=== PATIENT | female | born 1960 | race Caucasian/White ===

== ENCOUNTER 2018-03-20 06:10 | Emergency (ER) | payer MEDICAID ==
[~2018-03-20] VITALS: Ht 154.9 cm; Wt 88.5 kg
[2018-03-20 06:14] VITALS: BP 128/69
--- NOTE | 2018-03-20 06:14 | NUR ---
PT BIB SELF FOR LOWER BACK PAIN X2 WEEKS. PT REPORTS SHARP 9/10 PAIN THAT RADIATES TO ABD AND R HIP. PT DENIES N/V/D OR FEVER. PT DENIES BURNING URINATION OR FREQUENCY. ABD IS SOFT, NON-TENDER, HAS BOWEL SOUNDS ACTIVE X4 QUADRANTS. PT STATES LAST BM WAS 0400 THIS MORNING. ER MD TO SEE PT. BED IN LOWEST POSITION, HOB ELEVATED, SIDE RAILS UP X1. WILL CONTINUE TO MONITOR.
--- NOTE | 2018-03-20 06:14 | NUR ---
PT TAKEN TO BED 7
--- NOTE | 2018-03-20 07:30 | NUR ---
Patient being evaluated by physician at bedside.
[2018-03-20] MEDS ORDERED: KETOROLAC 60 MG/2 ML VIAL IM ONE ×2 (07:35→08:12)
--- NOTE | 2018-03-20 07:45 | NUR ---
TORADOL 60MG IM GIVEN TO PT ON RIGHT DELTOID
[2018-03-20 09:42] VITALS: BP 125/67
== END 2018-03-20 09:42 | disposition home or self-care (01) ==
LOC: MED 06:10
DX: S39.011A Strain of muscle, fascia and tendon of abdomen, initial encounter (principal); X58.XXXA Exposure to other specified factors, initial encounter; Y93.89 Activity, other specified; Y92.89 Other specified places as the place of occurrence of the external cause; Y99.8 Other external cause status
CPT/HCPCS: 81002; 81025; 96372; 99283; J1885

== ENCOUNTER 2019-01-07 17:10 | Emergency (ER) | payer MEDICAID ==
[~2019-01-07] VITALS: Ht 149.9 cm; Wt 90.7 kg
[2019-01-07 17:28] VITALS: BP 140/80
[2019-01-07 20:00] VITALS: BP 137/79
== END 2019-01-07 20:00 | disposition home or self-care (01) ==
LOC: MED 17:10
DX: J18.9 Pneumonia, unspecified organism (principal)
CPT/HCPCS: 71045; 87804; 99284

== ENCOUNTER 2019-02-16 09:07 | Emergency (ER) | payer MEDICAID ==
[~2019-02-16] VITALS: Ht 157.5 cm; Wt 86.6 kg
[2019-02-16 09:13] VITALS: BP 108/77
--- NOTE | 2019-02-16 09:13 | NUR ---
58 Y/O F WITH C/C OF COUGH, H/A, NAUSEA X2 DAYS. PT NKA. NO MEDICAL HX. NO RX. DENIES DIARRHEA/VOMITING. PT NOT UP TO DATE WITH FLU SHOT.
--- NOTE | 2019-02-16 09:20 | NUR ---
DR BANSAL AT BEDSIDE
--- NOTE | 2019-02-16 09:21 | NUR ---
DR BANSAL AT BEDSIDE
[2019-02-16] MEDS ORDERED: ONDANSETRON 4 MG/2 ML VIAL IVP ONE (09:25)
[2019-02-16] MEDS ORDERED: ONDANSETRON 4 MG ODT PO ONE (09:25)
[2019-02-16] MEDS ORDERED: KETOROLAC 30 MG/ML VIAL IVP ONE (09:25)
[2019-02-16] MEDS ORDERED: IBUPROFEN 600 MG TAB PO ONE (09:25)
[2019-02-16] MEDS ORDERED: NACL 0.9% 1,000 ML IV ONE (09:25)
--- NOTE | 2019-02-16 09:30 | NUR ---
FLU SWAB COLLECTED
--- NOTE | 2019-02-16 09:33 | NUR ---
PT TAKEN TO XRAY VIA WHEELCHAIR
[2019-02-16] MEDS ORDERED: LEVOFLOXACIN 500 MG TAB PO ONE (10:00)
[2019-02-16 10:59] VITALS: BP 108/77
== END 2019-02-16 10:59 | disposition home or self-care (01) ==
LOC: MED 09:07
DX: J18.8 Other pneumonia, unspecified organism (principal)
CPT/HCPCS: 71046; 87804; 96374; 96375; 99284; J1885; J2405; J7030; Q0162

== ENCOUNTER 2019-08-24 21:07 | Inpatient (IN) | payer MEDICAID, SELFPAY ==
[~2019-08-24] VITALS: Ht 142.2 cm; Wt 88.5 kg
[2019-08-24 21:51] VITALS: BP 104/69
[2019-08-24 21:56] LABS: BASOPHILS # (AUTO) 0.1 K/uL (0.00-0.22); BASOPHILS % (AUTO) 0.7 % (0.0-2.0); EOSINOPHILS % (AUTO) 0.1 % (0.0-4.0); HEMATOCRIT 46.3 % (36-48); HEMOGLOBIN 15.2 g/dL (12.0-16.0); LYMPHOCYTES # (AUTO) 1.3 K/uL (2.5-16.5); LYMPHOCYTES % (AUTO) 9.9 % (20.5-51.1); MEAN CORPUSCULAR HEMOGLOBIN 31 pg (27-31); MEAN CORPUSCULAR HGB CONC 33 g/dL (33-37); MEAN CORPUSCULAR VOLUME 93.2 fL (80-94); MONOCYTES # (AUTO) 0.7 K/uL (0.8-1.0); NEUTROPHILS % (AUTO) 84.3 % (42.2-75.2); PLATELET COUNT (AUTO) 316 K/uL (140-450); RED BLOOD CELL COUNT(AUTO) 4.97 MIL/uL (4.20-5.40); RED CELL DISTRIBUTION WIDTH 13.9 % (11.6-13.7); WHITE BLOOD COUNT (AUTO) 13.1 K/uL (4.8-10.8)
--- NOTE | 2019-08-24 22:05 | NUR ---
PT AMBULATED TO LOBBY TO A/W MEDICAL EVALUATION, VSS
[2019-08-24 22:30] LABS: ALBUMIN 3.2 g/dL (3.4-5.0); ANION GAP 16.2 (8-16); CREATININE 0.9 mg/dL (0.6-1.3); POTASSIUM 4.2 mmol/L (3.5-5.1); TOTAL BILIRUBIN 0.5 mg/dL (0.0-1.0)
--- NOTE | 2019-08-24 23:00 | NUR ---
PT AMBULATED TO ER BED 4
--- NOTE | 2019-08-24 23:10 | NUR ---
XRAY AT BEDSIDE
--- NOTE | 2019-08-24 23:12 | NUR ---
59 Y/O FEMALE C/O COUGH/SUBJECTIVE FEVER/SORE THROAT X 3 DAYS; PAIN 8/10 IN; TEMP IS 98.8 ORAL; BP 94/60; HR 91; RR 20; 97% RA; DENIES N/V/D; SKIN IS PINK/WARM/DRY; AAOX4 WITH EVEN AND STEADY GAIT; HR EVEN AND REGULAR; PT DENIES ANY SOB AT THIS TIME; VSS; PATIENT POSITIONED FOR COMFORT; HOB ELEVATED; BEDRAILS UP X2; BED DOWN AND LOCKED AND PT PLACED IN GOWN AND CONNECTED TO BEDSIDE MONITOR. PMH: PT DENIES NKA
--- NOTE | 2019-08-24 23:15 | NUR ---
PT MOVED FROM BED 4 TO BED 1 WITH STEADY GAIT
[2019-08-24] MEDS ORDERED: DEXAMETHASONE 4 MG/ML VIAL IVP ONE (23:25)
[2019-08-24] MEDS ORDERED: AZITHROMYCIN 500 MG in DEXTROSE 5% 250 ML IV ONE (23:25)
[2019-08-24] MEDS ORDERED: hePARIN / DEXT 5% PREMIX 250 ML IV ONE (23:25)
[2019-08-24] MEDS ORDERED: AZITHROMYCIN 500 MG INJ VIAL IV ONE (23:55)
[2019-08-25 00:28] LABS: PROTHROMBIN TIME 10.1 secs (10.8-13.4)
--- NOTE | 2019-08-25 01:00 | NUR ---
PT RESTING IN POSITION OF COMFORT, BED LOW AND LOCKED, 2 SIDERAILS UP, VSS, WILL CONTINUE TO MONITOR
[2019-08-25] MEDS ORDERED: LORazepam 2 MG/ML VIAL IM/IVP PRN (01:55)
[2019-08-25] MEDS ORDERED: HYDROcodone/APAP 5/325 MG 1 TAB TAB PO PRN (01:55)
[2019-08-25] MEDS ORDERED: MORPHINE SULFATE 2 MG/ML SYR IVP PRN (01:55)
[2019-08-25] MEDS ORDERED: ACETAMINOPHEN 325 MG TAB PO PRN (01:55)
[2019-08-25] MEDS ORDERED: hePARIN / DEXT 5% PREMIX 250 ML IV ONE (01:55)
[2019-08-25] MEDS ORDERED: DOCUSATE SODIUM 100 MG GELCAP PO PRN (01:55)
[2019-08-25] MEDS ORDERED: ONDANSETRON 4 MG/2 ML VIAL IM/IVP PRN (01:55)
[2019-08-25] MEDS ORDERED: ZOLPIDEM 5 MG TAB PO PRN (01:55)
--- NOTE | 2019-08-25 01:56 | NUR ---
STATED TO GIVE PT 1000UNITS/HR OF HEPARIN, NOTED AND CARRIED OUT .
--- NOTE | 2019-08-25 02:28 | NUR ---
PT SLEEPING IN POSITION OF COMFORT, BED LOW AND LOCKED, 2 SIDERAILS UP, VSS, WILL CONTINUE TO MONITOR
[2019-08-25] MEDS ORDERED: ALBUTEROL HFA MDI 90 MCG/ACTUATION 8 GM INH PRN (03:15)
[2019-08-25] MEDS ORDERED: DEXTROSE 50% 50 ML SYR IVP PRN (03:25)
--- NOTE | 2019-08-25 03:31 | NUR ---
PT SLEEPING IN POSITION OF COMFORT, BED LOW AND LOCKED, 2 SIDERAILS UP, VSS, WILL CONTINUE TO MONITOR
[2019-08-25 03:55] LABS: CHOL/HDL RATIO 3.6 (1-4.5); FREE T4 (FREE THYROXINE) 1.22 ng/dL (0.76-1.46); PHOSPHORUS 3.2 mg/dL (2.5-4.9); THYROID STIMULATING HORMONE 1.79 uIU/mL (0.34-3.74)
--- NOTE | 2019-08-25 03:56 | NUR ---
COVID NARE SWAB DONE AND WALKED TO LAB
[2019-08-25] MEDS: NACL 0.9% 1,000 ML IV SCH ×3 (04:30→21:52)
--- NOTE | 2019-08-25 04:30 | NUR ---
URINE SAMPLE OBTAINED AND WALKED TO LAB
--- NOTE | 2019-08-25 04:41 | NUR ---
PT RESTING IN POSITION OF COMFORT, BED LOW AND LOCKED, 2 SIDERAILS UP, VSS, WILL CONTINUE TO MONITOR
[2019-08-25] MEDS ORDERED: cefTRIAXone 1,000 MG VIAL ONE (04:45)
--- NOTE | 2019-08-25 05:55 | NUR ---
PT RESTING IN POSITION OF COMFORT, BED LOW AND LOCKED, 2 SIDERAILS UP, VSS, WILL CONTINUE TO MONITOR
[2019-08-25 06:33] LABS: APPEARANCE,URINE CLEAR (CLEAR); BILIRUBIN,URINE NEGATIVE (NEGATIVE); BLOOD, URINE NEGATIVE (NEGATIVE); COLOR,URINE YELLOW (YELLOW); LEUKOCYTE ESTERASE ,URINE NEGATIVE (NEGATIVE); NITRITE, URINE NEGATIVE (NEGATIVE); UGLUCOSE 1+ (NEGATIVE)
[2019-08-25 06:41] LABS: RBC,URINE 0-5 /HPF (0-5); WBC,URINE 0-5 /HPF (0-5)
[2019-08-25] MEDS: BLOOD GLUCOSE MONITORING 1 DEV DEV FS SCH ×4 (06:58→21:00)
[2019-08-25] MEDS: INSULIN LISPRO SLIDING SCALE 100 UNITS/ML VIAL SUBQ PRN ×3 (07:01→23:38)
--- NOTE | 2019-08-25 07:08 | NUR ---
PT RESTING IN POSITION OF COMFORT, BED LOW AND LOCKED, 2 SIDERAILS UP, VSS, WILL CONTINUE TO MONITOR
[2019-08-25 07:24] LABS: BASOPHILS % (AUTO) 0.2 % (0.0-2.0); HEMOGLOBIN 14.2 g/dL (12.0-16.0); LYMPHOCYTES # (AUTO) 0.4 K/uL (2.5-16.5); LYMPHOCYTES % (AUTO) 3.4 % (20.5-51.1); MEAN CORPUSCULAR HEMOGLOBIN 31 pg (27-31); MEAN CORPUSCULAR HGB CONC 33 g/dL (33-37); MONOCYTES # (AUTO) 0.2 K/uL (0.8-1.0); MONOCYTES % (AUTO) 1.8 % (1.7-9.3); NEUTROPHILS # (AUTO) 10.7 K/uL (1.8-7.7); NEUTROPHILS % (AUTO) 94.6 % (42.2-75.2); PLATELET COUNT (AUTO) 324 K/uL (140-450); RED BLOOD CELL COUNT(AUTO) 4.63 MIL/uL (4.20-5.40); WHITE BLOOD COUNT (AUTO) 11.3 K/uL (4.8-10.8)
--- NOTE | 2019-08-25 07:26 | NUR ---
Pt report given to tonny watts . Transfer of care at this time.
[2019-08-25 07:39] LABS: ALBUMIN 2.7 g/dL (3.4-5.0); ANION GAP 12.4 (8-16); CARBON DIOXIDE 26.7 mmol/L (21-32); CREATININE 0.8 mg/dL (0.6-1.3); MAGNESIUM 2.2 mg/dL (1.8-2.4); PHOSPHORUS 3.4 mg/dL (2.5-4.9); POTASSIUM 4.1 mmol/L (3.5-5.1); TOTAL BILIRUBIN 0.4 mg/dL (0.0-1.0)
--- NOTE | 2019-08-25 08:49 | NUR ---
PATIENT HAS BEEN SCREENED AND CATEGORIZED MODERATE NUTRITION RISK. PATIENT WILL BE SEEN WITHIN 3-5 DAYS OF ADMISSION. 08/27/19 08/29/[address]
--- NOTE | 2019-08-25 09:40 | NUR ---
PT EATING AT BEDSIDE
[2019-08-25 09:53] LABS: BARBITURATE, URINE NEGATIVE ng/ml (NEG <=200); BENZODIAZEPINE, URINE NEGATIVE ng/mL (NEG <=200); CANNABINOID, URINE NEGATIVE ng/mL (NEG <=50); COCAINE, URINE NEGATIVE ng/mL (NEG <=300); OPIATE, URINE NEGATIVE ng/mL (NEG <=2000); PHENCYCLIDINE SCREEN,URINE NEGATIVE ng/mL (NEG <=25)
[2019-08-25] MEDS: ASCORBIC ACID 500 MG TAB PO SCH (10:26)
[2019-08-25] MEDS: DEXAMETHASONE 4 MG/ML VIAL IVP SCH (10:26)
[2019-08-25] MEDS: VITAMIN D 400 IU TAB PO SCH (10:27)
[2019-08-25] MEDS: ZINC SULF 220 MG CAP PO SCH (10:28)
[2019-08-25] MEDS: AZITHROMYCIN 250 MG in DEXTROSE 5% 250 ML IV SCH (10:58)
--- NOTE | 2019-08-25 11:06 | NUR ---
PT RESTING IN BED COMFORTABLY. NO NOTED DISTRESS.
--- NOTE | 2019-08-25 12:22 | NUR ---
BLOOD SUGAR 338 *TAKEN AFTER MEAL
--- NOTE | 2019-08-25 12:27 | NUR ---
BS REPORTED TO RESIDENT.
--- NOTE | 2019-08-25 12:50 | NUR ---
8 UNITS OF REGULAR INSULIN GIVEN, SQ RT LOWER ABD FOR A BS OF 333. NADR AT THIS TIME
--- NOTE | 2019-08-25 18:46 | NUR ---
Albino calzada in [facility] - 08/25/19 at 1846 by [facility] BS 255, 6 UNITS INSULIN GIVEN SQ
--- NOTE | 2019-08-25 18:47 | NUR ---
BS 255, 6 UNITS INSULIN GIVEN SQ LEFT LOWER ABD
--- NOTE | 2019-08-25 19:14 | NUR ---
REPORT GIVEN TO ISIDRO WALLACE. ALL CARE TRANSFERRED AT THIS TIME.
--- NOTE | 2019-08-25 20:04 | NUR ---
PT GIVEN DINNER TRAY, RESTING COMFORTABLY IN BED. VSS, R/R EQUAL AND UNLABORED. BED IN LOW POSITION.
--- NOTE | 2019-08-25 20:48 | NUR ---
PT ACCIDENTALLY DISLODGED R HAND 20 GAUGE IV. 20 GAUGE REPLACED IN RAC.
--- NOTE | 2019-08-25 21:35 | NUR ---
Patient will be admitted to care of DR. TELLO. Admited to TELE. Will go to room 119 B. Belongings list completed. Report to ISIDRO WINSLOW.
[2019-08-25 22:00] VITALS: BP 114/70
--- NOTE | 2019-08-25 22:00 | NUR ---
Admitted from ER TO TELEMETRY UNIT , with chief complaint of COUGH, SORE THROAT, FEVER X 3 DAYS , 59 y/o ,Female, Cooperative, AWAKE, A/OX4, CITIZEN OF [place] SPEAKING, USED GEOCHEMIST LINK, #[id number].RESPIRATION EVEN AND UNLABORED. 02 SAT - 96% ON 2 L N/C. ABDOMEN SOFT, NON-TENDER WITH POSITIVE BOWEL SOUNDS. NO EDEMA NOTED ON BILATERAL LOWER EXTREMITIES. PATIENT IS ABLE TO AMBULATE INDEPENDENTLY. HEAD TO TOE ASSESSMENT DONE WITH ISIDRO TRAN. SKIN IS INTACT. PLAN OF CARE DISCUSSED WITH PATIENT. VERBALIZED UNDERSTANDING. DENIES PAIN 0/10. oriented to call light, bed,phone,television, bathroom, smoking policy,visiting hours, procedures, ID bracelet on. Belongings list checked.
[2019-08-26] VITALS: BP 117/73
--- NOTE | 2019-08-26 | NUR ---
SLEEPING COMFORTABLY IN BED.
[2019-08-26] MEDS ORDERED: guaiFENesin DM 200/20 MG-10 ML 10 ML UDC PO PRN (01:55)
[2019-08-26 04:00] VITALS: BP 122/69
--- NOTE | 2019-08-26 04:00 | NUR ---
STILL SINUS RHYTHM ON TELE MONITORING. NO COMPLAINT OF PAIN 0/10.
[2019-08-26] MEDS ORDERED: cefTRIAXone 1,000 MG VIAL ONE (04:28)
[2019-08-26 06:30] LABS: BASOPHILS % (AUTO) 0.3 % (0.0-2.0); HEMATOCRIT 39.8 % (36-48); HEMOGLOBIN 13.2 g/dL (12.0-16.0); LYMPHOCYTES # (AUTO) 1.2 K/uL (2.5-16.5); LYMPHOCYTES % (AUTO) 7.9 % (20.5-51.1); MEAN CORPUSCULAR HEMOGLOBIN 31 pg (27-31); MEAN CORPUSCULAR HGB CONC 33 g/dL (33-37); MEAN CORPUSCULAR VOLUME 92.4 fL (80-94); MONOCYTES # (AUTO) 1.1 K/uL (0.8-1.0); MONOCYTES % (AUTO) 7.5 % (1.7-9.3); NEUTROPHILS # (AUTO) 12.4 K/uL (1.8-7.7); NEUTROPHILS % (AUTO) 84.3 % (42.2-75.2); PLATELET COUNT (AUTO) 347 K/uL (140-450); RED BLOOD CELL COUNT(AUTO) 4.31 MIL/uL (4.20-5.40); RED CELL DISTRIBUTION WIDTH 13.8 % (11.6-13.7); WHITE BLOOD COUNT (AUTO) 14.7 K/uL (4.8-10.8)
[2019-08-26 07:08] LABS: ALBUMIN 2.6 g/dL (3.4-5.0); ANION GAP 13.6 (8-16); CARBON DIOXIDE 26.4 mmol/L (21-32); CREATININE 0.5 mg/dL (0.6-1.3); MAGNESIUM 2.1 mg/dL (1.8-2.4); PHOSPHORUS 2.9 mg/dL (2.5-4.9); TOTAL BILIRUBIN 0.2 mg/dL (0.0-1.0)
[2019-08-26] MEDS: BLOOD GLUCOSE MONITORING 1 DEV DEV FS SCH ×4 (07:15→21:00)
[2019-08-26] MEDS: INSULIN LISPRO SLIDING SCALE 100 UNITS/ML VIAL SUBQ PRN ×4 (07:18→22:03)
--- NOTE | 2019-08-26 07:30 | NUR ---
CONDITION REMAIN STABLE. ENDORSED TO AM SHIFT NURSE FOR CONTINUITY OF CARE.
--- NOTE | 2019-08-26 07:35 | NUR ---
RECEIVED PT FROM HOLLOCK MAKER NURSE, NAYLA, PT IS AWAKE AND ON ROOM AIR, IV LINES NOTED ON THE RAC G. 20 WITH NS INFUSING AT 100ML/HR AND ON THE LEFT HAND G. 20 ON SALINE LOCK, PT DENIES PAIN AND NO SIGN OF DISTRESS NOTED. WILL MONITOR PT. Addendum: 08/26/19 at 1127 by Harriet Faulkner RN CORRECTION ON THE ABOVE NOTE THATN PT IS ON O2 2L NC.
[2019-08-26] MEDS: NACL 0.9% 1,000 ML IV SCH ×2 (07:52→20:04)
[2019-08-26 08:00] VITALS: BP 102/69
[2019-08-26] MEDS: ENOXAPARIN 80 MG/0.8 ML SYR SUBQ SCH (10:40)
[2019-08-26] MEDS: AZITHROMYCIN 250 MG in DEXTROSE 5% 250 ML IV SCH (10:41)
[2019-08-26] MEDS: VITAMIN D 400 IU TAB PO SCH (10:41)
[2019-08-26] MEDS: ZINC SULF 220 MG CAP PO SCH (10:41)
[2019-08-26] MEDS: ASCORBIC ACID 500 MG TAB PO SCH (10:42)
[2019-08-26] MEDS: DEXAMETHASONE 4 MG/ML VIAL IVP SCH (10:42)
--- NOTE | 2019-08-26 10:42 | NUR ---
PT WAS GIVEN THE SCHEDULED AM MEDICATIONS NOW, TOLERATED, NO SIGN OF DISTRESS NOTED AND WILL MONITOR PT.
--- NOTE | 2019-08-26 11:14 | NUR ---
PT WAS GIVEN INSULIN 4 UNITS ON THE ABDOMEN FOR BLOOD GLUCOSE OF 203, WILL MONITOR PT.
[2019-08-26 12:00] VITALS: BP 104/67
--- NOTE | 2019-08-26 15:25 | NUR ---
DC PLANNIN YRS OLD FEMALE PATIENT WAS ADMITTED FROM HOME WITH A DX OF BILATERAL PNEUMONIA , R/O COVID. PT HAS NO MEDICAL HISTORY. CXR SHOWED BILATERAL HAZY PULMONARY DENSITIES, CONCERN FOR INFILTRATE . URINE AND BLOOD CULTURE AND COVID -19 TEST PENDING. STARTED ON IVF ,IV ABX AZITHROMYCIN AND ROCEPHIN , DECADRON VIT C AND ZINC TABLET. CONSULTED WITH ID AND PULMO DC PLAN TO GO HOME WHEN STABLE. CM TO FOLLOW. Addendum: 08/27/19 at 1334 by Sirisha Huntley CM FAXED ORDER FOR HOME O2 TO [facility]. WILL FOLLOW UP Addendum: 08/27/19 at 1709 by Sirisha Huntley CM SPOKE TO PATIENTS SARAH ARAMBULA [phone] REGARDING HOME OXYGEN. THE ANDRES FOR HOME 02 OUT OF POCKET IS $225.00. HOWEVER THE PATIENTS FAMILY CAN NOT AFFORD THIS AT THE TIME. DAWSON AT [facility] STATED THAT HE COULD REDUCE IT TO $150.00 IF THE PATIENTS CAN DRESSING ROOM ATTENDANT THE OXYGEN HIMSELF BUT THE [facility] OFFICE CLOSES AT 5:00 PM. THE AGREED TO PAY THE 150.00 TOMORROW. I EXPLAINED TO HIM THAT IT HAS TO BE EXACT WOODALL OR CREDIT CARD. NOTIFIED DR. BECKHAM. Addendum: 08/28/19 at 0914 by Sirisha Huntley CM FOLLOWED UP WITH THE PATIENTS GIRISH [phone] REGARDING THE HOME O2. HE WILL BE AT [facility] IN [place] AROUND 9:30 AM TO DRESSING ROOM ATTENDANT THE EQUIPMENT AND COULD BE HERE AT THE [facility] AROUND 11:00 -11:30 AM TO DRESSING ROOM ATTENDANT THE PATIENT. I FOLLOWED UP WITH DAWSON AT [facility] TO MAKE SURE EVERYTHING WAS IN PLACE. DAWSON STATED THAT EVERYTHING IS GOOD TO GO AND HE WAS IN CONTACTED WITH THE [facility] WELL. NOTIFIED ISIDRO YANES
--- NOTE | 2019-08-26 15:32 | NUR ---
08/26/19 RD INITIAL ASSESSMENT COMPLETED PLEASE REFER TO NUTRITION ASSESSMENT UNDER CARE ACTIVITY FOR ESTIMATED NUTRITIONAL NEEDS. 1. CONTINUE CCHO 60GM DIET TOLERATED 2. CONTINUE GLUCERNA BID 3. ENCOURAGED INCREASING PO INTAKE 4. RD TO FOLLOW-UP 3-5 DAYS, MODERATE RISK [place], RD
[2019-08-26 16:00] VITALS: BP 130/70
--- NOTE | 2019-08-26 16:09 | NUR ---
PT WAS GIVEN INSULIN 6 UNITS ON THE ABDOMEN FOR THE BLOOD GLUCOSE CHECK OF 266, V/S TAKEN AND IS STABLE, WILL MONITOR PT.
--- NOTE | 2019-08-26 19:07 | NUR ---
TRANSFER OF CARE TO PM NAYLA LANGE. PT IS RESTING IN BED AWAKE. VS STABLE. PT IS COMFORTABLE. BED IN LOWEST POSITION. RECOMMEND CONTINUE MONITORING BLOOD SUGAR.
--- NOTE | 2019-08-26 19:08 | NUR ---
RECD. RESTING IN BED, AWAKE, A/OX4. RESPIRATION EVEN AND UNLABORED. 02 AT 2 LITERS VIA N/C. SAT- 96%. IV OF NS AT 100 ML/HR INFUSING RIGHT AC G20. AMBULATORY TO THE BATHROOM, AFEBRILE. OCCASIONALLY COUGH, BUT DENIES PHLEGM. PLAN OF CARE FOR THE SHIFT DISCUSSED. VERBALIZED UNDERSTANDING. DENIES PAIN 0/10.
--- NOTE | 2019-08-26 19:20 | NUR ---
PROVIDER EDUCATION SPECIALIST CALLED, PATIENT IS COVID POSITIVE.
[2019-08-26 20:00] VITALS: BP 132/62
--- NOTE | 2019-08-26 20:00 | NUR ---
Patient's Plan of Care was discussed and reviewed with SHOE WORKER: NAYLA MARTÍNEZ
--- NOTE | 2019-08-26 20:00 | NUR ---
Patient's Plan of Care was discussed and reviewed with RADHA DUFFY
--- NOTE | 2019-08-26 20:30 | NUR ---
ENCOURAGED TO DRINK MORE FLUIDS AND TO DO OCCASIONAL DEEP BREATHING. NODS HEAD IN UNDERSTANDING.
--- NOTE | 2019-08-26 21:00 | NUR ---
SNACK FOR THE NIGHT GIVEN, ATE 100%.
--- NOTE | 2019-08-26 23:00 | NUR ---
IV SALINE LOCK AT THE LEFT HAND G20, ACCIDENTALLY PULLED OUT BY PATIENT WHILE AMBULATING TO THE BR. CLEANSED BLOOD ON PATIENT AND FLOOR. MADE COMFORTABLE IN BED.
[2019-08-27] VITALS: BP 141/70
--- NOTE | 2019-08-27 01:30 | NUR ---
SLEEPING COMFORTABLY IN BED.
[2019-08-27 04:00] VITALS: BP 142/82
--- NOTE | 2019-08-27 04:00 | NUR ---
VS STABLE. NO FEVER AND NO COMPLAINT OF PAIN 0/10.
[2019-08-27] MEDS: NACL 0.9% 1,000 ML IV SCH ×3 (05:05→21:04)
[2019-08-27] MEDS: BLOOD GLUCOSE MONITORING 1 DEV DEV FS SCH ×4 (06:58→21:00)
[2019-08-27] MEDS: INSULIN LISPRO SLIDING SCALE 100 UNITS/ML VIAL SUBQ PRN ×3 (07:04→18:17)
--- NOTE | 2019-08-27 07:20 | NUR ---
AWAKE IN BED, CONDITION REMAIN STABLE. NO FEVER, NO COMPLAINT OF PAIN DURING SHIFT. ENDORSED TO AM SHIFT NURSE FOR CONTINUITY OF CARE.
--- NOTE | 2019-08-27 07:21 | NUR ---
RECEIVED REPORT FORM ENROLLMENT SERVICES DEAN NURSE. PATIENT SITTING IN BED WATCHING TV. NO DISTRESS NOTED. DENIES ANY PAIN AT THIS TIME. AAOX3, CALM, COOPERATIVE, SKIN COLOR APPROPRIATE TO ETHNICITY, WARM TO TOUCH. SKIN INTACT. RESPIRATIONS EVEN, UNLABORED, ON O2 2L/MIN VIA NC. INTERMITTENT DRY COUGH NOTED. IV SITE INTACT, PATENT, AND INFUSING IVF PER MD ORDERS. REVIEWED PLAN OF CARE WITH PATIENT. PATIENT VERBALIZED UNDERSTANDING. SAFETY MEASURES IN PLACE, CALL LIGHT WITHIN REACH. WILL CONTINUE TO MONITOR.
[2019-08-27 08:00] VITALS: BP 121/71
[2019-08-27] MEDS: DEXAMETHASONE 4 MG/ML VIAL IVP SCH (10:05)
[2019-08-27] MEDS: VITAMIN D 400 IU TAB PO SCH (10:06)
[2019-08-27] MEDS: ASCORBIC ACID 500 MG TAB PO SCH (10:06)
[2019-08-27] MEDS: ZINC SULF 220 MG CAP PO SCH (10:06)
[2019-08-27] MEDS: ENOXAPARIN 80 MG/0.8 ML SYR SUBQ SCH (10:06)
[2019-08-27] MEDS: AZITHROMYCIN 250 MG in DEXTROSE 5% 250 ML IV SCH (10:09)
--- NOTE | 2019-08-27 10:09 | NUR ---
SCHEDULED MEDICATIONS DUE GIVEN. WILL CONTINUE TO MONITOR.
[2019-08-27] MEDS ORDERED: AZIT250T3 PO (10:50)
[2019-08-27] MEDS ORDERED: [UNRECOGNIZED DRUG - CODE] PO (10:50)
[2019-08-27] MEDS ORDERED: DEC4 PO (10:50)
[2019-08-27] MEDS ORDERED: ZINC220C28 PO (10:50)
[2019-08-27] MEDS ORDERED: ASPI-1822 PO (10:50)
[2019-08-27] MEDS ORDERED: METF850T PO (10:54)
--- NOTE | 2019-08-27 11:41 | NUR ---
PERFORMED OXYGEN QUALIFIER TEST ON PATIENT. ON ROOM AIR FOR 30 MIN, O2 SAT IS 88%. WHEN WALKING 10 FT IN ROOM ON ROOM AIR, O2 SAT 78-80%. WHEN WALKING 10 FT WITH O2 3L/MIN VIA NC, O2 SAT 86-88%. WHEN SITTING DOWN RESTING ON O2 3L/MIN VIA NC, O2 SAT 91-92%. WILL NOTIFY
[2019-08-27 12:00] VITALS: BP 124/75
--- NOTE | 2019-08-27 12:51 | NUR ---
SCHEDULED MEDICATIONS DUE GIVEN. WILL CONTINUE TO MONITOR.
--- NOTE | 2019-08-27 14:35 | NUR ---
PRE PRESS OPERATOR NOTE: Patient's Orientation Person Situation Place Time Information Provided By GIIRSH ARAMBULA Comments SW WAS UNABLE TO MEET PATIENT AT BEDSIDE DUE TO MEDICAL CONDITION. Supervisor Dyer, Realtionship and Phone Number GIRISH TYESHA SIGNIFICANT OTHER [phone] Identifying Problems No Social Work Triggers Is A Social Work Consult Needed No Mandate Report Filed No Explanation Of Identifying Problems PATIENT IS A 59-YEAR-OLD FEMALE ADMITTED FOR BILATERAL PNEUMONIA AND COVID R/O. PATIENT HAS NO PERTINENT PMHX. Admitted From Home Pre-Admission Level Of Functioning Status Independent/Ambulatory Prior Resources/Services Used In Last 12 Months No Prior Resources Used Prior DME No Prior DME Used Living Situation Lives W/Significant Other House Patient Had Caregiver No Home Support No Caregiver Issues Financial Issues No Known Financial Issue Factors/Needs No D/C Needs Identified Pt/Rep Participated In Discharge Plan Yes Patient/Family Agress With Discharge Plan Yes Discharge Plan Comments [facility] DISCHARGE PLAN IS FOR PATIENT TO RETURN HOME. DC Plan Status Initiated
[2019-08-27 16:00] VITALS: BP 125/81
--- NOTE | 2019-08-27 17:15 | NUR ---
PER CAROUSEL OPERATOR, PATIENT'S WILL PICKUP OXYGEN TOMORROW BECAUSE THEY CLOSED AT 1700 AND WANTS TO PICKUP FOR $75 DISCOUNT ON OXYGEN CO-PAY ANDRES. CAROUSEL OPERATOR ALSO GAVE PATIENT'S ADDRESS AND PHONE NUMBER OF OXYGEN PICKUP PLACE. TO PICKUP OXYGEN SOMETIME EARLY TOMORROW. WILL CONTINUE TO MONITOR.
--- NOTE | 2019-08-27 18:18 | NUR ---
SCHEDULED MEDICATIONS DUE GIVEN. WILL CONTINUE TO MONITOR.
--- NOTE | 2019-08-27 19:30 | NUR ---
GAVE REPORT TO OUTSOLE BEVELER NURSE FOR CONTINUITY OF CARE. PATIENT IN STABLE CONDITION.
[2019-08-27 20:00] VITALS: BP 132/88
--- NOTE | 2019-08-27 20:23 | NUR ---
RECEIVED REPORT FROM [facility] NURSE FOR CONTINUITY OF CARE. PT IS AA&OX2. RESPIRATIONS ARE EVEN AND UNLABORED, BREATHING TO 2LPM VIA NC. RAC 20G IV IS PATENT AND INTACT, AND INFUSING ORDERED. CCHO 60 GRAM DIET.REVIEWED POC. PT'S TO [facility] HOME O2 TOMORROW MORNING. PT IS COVID-19 POSITIVE; DROPLET PRECAUTIONS IN PLACE. SAFETY MEASURES IN PLACE; BED IN LOW POSITION, CALL LIGHT WITHIN REACH. WILL CONTINUE TO MONITOR. Addendum: 08/27/19 at 2027 by Kimmy Garza RN TIME CORRECTION *[id number]*
[2019-08-28] VITALS: BP 135/87
[2019-08-28] MEDS: INSULIN LISPRO SLIDING SCALE 100 UNITS/ML VIAL SUBQ PRN ×3 (01:24→12:39)
--- NOTE | 2019-08-28 01:50 | NUR ---
ADMINISTERED PRN TYLENOL FOR TEMPERATURE OF 100.8 DEGREES FAHRENHEIT. PT IS RESTING IN BED. IV FLUIDS ARE INFUSING, ORDERED. NO DISTRESS NOTED. SAFETY MEASURES IN PLACE. TELE MONITOR ATTACHED. WILL CONTINUE TO MONITOR.
[2019-08-28 04:00] VITALS: BP 136/85
--- NOTE | 2019-08-28 07:28 | NUR ---
RECEIVED REPORT FORM TECHNICIAN TRAINEE NURSE FOR CONTINUITY OF CARE. PATIENT SITTING TALKING ON THE PHONE. NO DISTRESS NOTED. DENIES ANY PAIN AT THIS TIME. AAOX4, CALM, COOPERATIVE, [place] SPEAKING, SKIN COLOR APPROPRIATE TO ETHNICITY, WARM TO TOUCH. SKIN INTACT. RESPIRATIONS EVEN, UNLABORED, ON O2 2L/MIN VIA NC. INTERMITTENT DRY COUGH NOTED. IV SITE INTACT, PATENT, AND INFUSING IVF PER MD ORDERS. REVIEWED PLAN OF CARE WITH PATIENT. PATIENT VERBALIZED UNDERSTANDING. SAFETY MEASURES IN PLACE, CALL LIGHT WITHIN REACH. WILL CONTINUE TO MONITOR. PT TO BE DC LATER TODAY ONCE PICKS UP HER O2 FOR HOME.
--- NOTE | 2019-08-28 07:30 | NUR ---
ENDORSED TO DAYSHIFT RN, FOR CONTINUITY OF CARE. PT IS IN STABLE CONDITION.
[2019-08-28 08:00] VITALS: BP 130/80
[2019-08-28] MEDS: BLOOD GLUCOSE MONITORING 1 DEV DEV FS SCH ×2 (08:23→11:30)
[2019-08-28] MEDS: ENOXAPARIN 80 MG/0.8 ML SYR SUBQ SCH (09:00)
[2019-08-28] MEDS: ZINC SULF 220 MG CAP PO SCH (09:00)
[2019-08-28] MEDS: VITAMIN D 400 IU TAB PO SCH (09:00)
[2019-08-28] MEDS: DEXAMETHASONE 4 MG/ML VIAL IVP SCH (09:00)
[2019-08-28] MEDS: ASCORBIC ACID 500 MG TAB PO SCH (09:00)
[2019-08-28] MEDS: NACL 0.9% 1,000 ML IV SCH (09:34)
--- NOTE | 2019-08-28 09:40 | NUR ---
ADMINISTERED MORNING MEDS. PT TOLERATED WELL. ALL NEEDS MET. WILL CONTINUE TO ROUND FREQUENTLY ON PT.
--- NOTE | 2019-08-28 11:24 | NUR ---
PT RESTING IN BED. ALL NEEDS MET. WILL CONTINUE TO ROUND ON PT.
[2019-08-28 12:00] VITALS: BP 120/72
--- NOTE | 2019-08-28 13:25 | NUR ---
PT DISCHARGED HOME FOR SELF CARE. PT VERBALIZED UNDERSTANDING TO TEACHING. DISCUSSED IMPORTANCE OF SELF ISOLATING AT HOME AWAY FROM FAMILY UNTIL HER PCP CLEARS HER. PT VERBALIZED UNDERSTANDING AND ALSO STATED THAT HER HAS HER O2 WAITING FOR HER AT HOME AND IS AWARE OF ITS USE. IV REMOVED WITH TIP INTACT. ALL PERSONAL BELONGINGS TAKEN HOME WITH PT. ARM BAND REMOVED AND PLACED IN SHRED BIN. PT LEFT IN STABLE CONDITION ACCOMPANIED BY HER .
== END 2019-08-28 13:32 | disposition home or self-care (01) | DRG 720 ==
LOC: MED 21:07 → EEVIPCON 08-25 01:55 → MTU 08-25 01:55
PROVIDERS: ADMIT General Practice; ATTEND General Practice
DX: A41.89 Other specified sepsis (principal); E87.1 Hypo-osmolality and hyponatremia; Z68.41 Body mass index [BMI] 40.0-44.9, adult; E11.65 Type 2 diabetes mellitus with hyperglycemia; E43 Unspecified severe protein-calorie malnutrition; E66.01 Morbid (severe) obesity due to excess calories; J12.89 Other viral pneumonia; J96.01 Acute respiratory failure with hypoxia; U07.1 COVID-19; Z71.3 Dietary counseling and surveillance
CPT/HCPCS: 36415; 36600; 71045; 80053; 80305; 81001; 82150; 82550; 82803; 82948; 83036; 83605; 83615; 83690; 83735; 83880; 84100; 84439; 84443; 84484; 85025; 85379; 85610; 85651; 85730; 86140; 87040; 87081; 87086; 87804; 96365; 96375; 99291; C1758; J0456; J0696; J1100; J1644; J1650; J7030; J7060; Q0092; U0003-CS